=== PATIENT | male | born 1950 | race Caucasian/White ===

== ENCOUNTER 2019-10-20 01:04 | Outpatient (CLI) | payer MEDICARE, MEDICAID, SELFPAY ==
--- NOTE | 2019-10-20 | DI.NM_ITS ---
APPROVED REPORT Exam: Exercise Treadmill Patient Location: Out-Patient Room/Bed: Stress Nurse: Laury Marti RN BMI: 36.27 Baseline Rhythm: Atrial Fibrillation Indications: Patient testing today for further risk stratification. Patient has history of Atrial Fib rillation. Patient reports that 2 months ago he was shopping at [employer] when had and episode of ???tu nnel vision??? and passed out. He states a couple of weeks ago he had pain from left elbow, across ch est, to right elbow associated diaphoresis that lasted ???less than 1 minute???. He also states he teixeira s occasional lightheadedness. Medical History Medical History: Hypothyroidism, Obesity, Depression, Atrial Fibrillation (08/2017), MEHNAZ. Cardiac Medications: Amlodipine, Aspirin, Eliquis, Metopolol Tartrate. Allergies: Azithromycin, Lexapro, Penicillin, Percocet, Tetracycline, Vicodin. Cardiac Risk Factors: FHX of CAD, HTN, Hyperlipidemia, FHX of CAD, Smoking Previous Cardiac Procedures: History of 1 stent per patient. Pretest Chest Pain Characteristics: None Exercise History: Sedentary Physical Disabilities: None Lung Sounds: Clear to auscultation Heart Sounds: Irregular Stress Test Details Test: Exercise stress testing was performed using a [place] protocol. Nuclear Acquisition: Rest Tc-99m/Stress Tc-99m 1 day Rest Isotope: Tc-99m Sestamibi. Dose: 12.3 Date: 10/20/2019 Injection Time: 1205 Stress Isotope: Tc-99m Sestamibi. Dose: 38.0 Date: 10/20/2019 Injection Time: 1350 HR Resting HR Supine: 69 bpm Max Heart Rate (APMHR): 150 bpm Resting HR Standin bpm Target HR (85% APMHR): 127 bpm Max HR Achieved: 148 bpm % of APMHR: 98 HR response to stress: Normal HR response to stress BP Resting BP Supine: 140/76 mmHg Resting BP Standin/80 mmHg Max BP: 172/74 mmHg BP response to stress: Normal blood pressure response to stress. ECG Resting ECG: Atrial Fibrillation Stress ECG: Atrial Fibrillation ST Change: Normal Arrhythmia: Atrial fibrillation Recovery ECG: Atrial Fibrillation Recovery ST Change: Normal Recovery Arrhythmia: Atrial Fibrillation Clinical Reason for Termination: Fatigue and knee pain. Stress Symptoms: None reported per patient. Exercise duration: 4 min0 sec Highest Stage Reached: Stage 2: 2.5 mph at 12% grade. Exercise capacity: 5.85 METs Functional Capacity: Moderately diminished capacity Stress ECG Conclusion 1. The patient exercised for 4 minutes (6 METS). Patient no symptoms suggestive of ischemia. Rate-p ressure product was 16,000. 2. Patient was in atrial fibrillation for the entirety of the test. 3. There is no evidence of ischemia on the ECG portion of the exam. Stress Test Summary STAGE Time (mins) Speed (mph) Grade (%) HR BP SYMPTOMS METS Supine 69 140/76 Standing 82 136/80 1 3 1.7 10 133 152/70 4.6 2 6 2.5 12 136 7 1 min recovery 111 172/74 3 min recovery 86 166/76 6 min recovery 88 154/80 9 min recovery 79 150/78 MPI Conclusion Ejection fraction was 51% with stress. There were no wall motion abnormalities. There was a small partially reversible perfusion defect in the inferior apical region as well as apex . This represents an abnormal SPECT stress test. Radiologist Interpretation Radiologist agrees with Account Installer's Interpretation. Radiologist Interpretation by: Agustin Hinojosa MD Interpretation Date/Time: 10/20/2019 15:09:46
== END 2019-10-20 01:24 ==
PROVIDERS: PCP Family Medicine; Visit Provider Internal Medicine Interventional Cardiology
DX: I48.91 Unspecified atrial fibrillation (principal); R42 Dizziness and giddiness; I10 Essential (primary) hypertension; E03.9 Hypothyroidism, unspecified; Z82.49 Family history of ischemic heart disease and other diseases of the circulatory system
CPT/HCPCS: 78452; 93016; 93018; 93017

== ENCOUNTER 2023-01-02 14:54 | Outpatient (REF) | payer MEDICARE, MEDICAID, SELFPAY ==
--- NOTE | 2023-01-02 | LIPBX_PTH ---
PATIENT: CALLY ENGLAND LOC: [facility] U#:[id number] AGE/SX: 72/M ROOM: RE01/02/[address]: PAULA Marquez : 1950 BED: DIS: 01/02/2023 SPEC #: [id number] RECD: 01/02/23 18:22 STATUS: RUFINO REQ #: [id number] ROSY: 01/02/23 00:[address]: Pierre Alvarado DEPT: Surgical Specimen RECD BY: Belgica Loyd ENTERED: 01/02/23 18:23 SP TYPE: LIPBX OTHR DR: Dylon Robles Tissues: 1 - LIP BIOPSY/RESECTION Procedures: SKIN LEVEL 4 Comments: [id number]
== END 2023-01-02 14:55 | disposition home or self-care (01) ==
LOC: LBN 14:54
PROVIDERS: PCP Family Medicine; Visit Provider Physician Assistant
DX: L57.0 Actinic keratosis (principal); D23.0 Other benign neoplasm of skin of lip
CPT/HCPCS: 88305